=== PATIENT | male | born 1970 | race Caucasian/White ===

== ENCOUNTER 2023-01-07 15:27 | Emergency (ER) | payer OTHER, SELFPAY ==
[2023-01-07 15:37] VITALS: BP 188/100; PULSE 78; RESP 20; TEMP 36.6; O2SAT 97; BMI 36.9
--- NOTE | 2023-01-07 17:56 | XR_ITS ---
The [address] [address] Patient Name: KELSEY RAMOS MRN: [id number] date: 1970 Sex: M Assigned Patient Location: ER Current Patient Location: ER Accession/Order Number: [id number] Exam Date: 01/07/2023 17:50 Report Date: 01/07/2023 20:48 At the request of: PACHECO UREÑA Procedure: XR elbow LT 2V PROCEDURE: XR elbow LT 2V HISTORY: injury c/o pain to area. COMPARISON: XR elbow left 03/23/2022 FINDINGS: BONES:There is suggestion of fracture of the anterior aspect of the radial head, but no corresponding finding on additional images. SOFT TISSUES:No visible soft tissue swelling. EFFUSION:Small joint effusion. OTHER: Negative. XR/XR elbow LT 2V IMPRESSION: 1. Concern for fracture of radial head of left elbow as detailed above. Consider CT imaging of the elbow if this fits with clinical presentation. 2. Small joint effusion. Preliminary findings were provided to the emergency department at time of imaging. Electronically authenticated by: NICOLA GRUBBS Date: 01/07/2023 20:48
--- NOTE | 2023-01-07 17:56 | CT_ITS ---
The [address] [address] Patient Name: KELSEY RAMOS MRN: [id number] date: 1970 Sex: M Assigned Patient Location: ER Current Patient Location: ER Accession/Order Number: [id number] Exam Date: 01/07/2023 17:48 Report Date: 01/07/2023 20:50 At the request of: PACHECO UREÑA Procedure: CT facial bones wo con EXAMINATION: CT facial bones wo con HISTORY: fell hit face with bleeding from right nares COMPARISON: No relevant comparison available. TECHNIQUE: Axial, Coronal, and Sagittal CT images created without IV contrast. Dose reduction techniques were achieved by using automated exposure control and/or adjustment of mA and/or kV according to patient size and/or use of iterative reconstruction technique. FINDINGS: FACIAL BONES: No bony lesion or fracture. SINUSES: No visible mass, significant fluid or mucosal thickening. NASAL FOSSA: No mass, fracture, or significant septal deviation. SKULL BASE: No mass or bone destruction. ORBITS: No visible mass, hematoma, edema or fracture. OTHER: Negative. CT/CT facial bones wo con IMPRESSION: 1. No acute bone abnormality. 2. Clear sinuses. Preliminary findings were provided to the emergency department at time of imaging. Electronically authenticated by: NICOLA GRUBBS Date: 01/07/2023 20:50
--- NOTE | 2023-01-07 17:56 | XR_ITS ---
The [address] [address] Patient Name: KELSEY RAMOS MRN: [id number] date: 1970 Sex: M Assigned Patient Location: ER Current Patient Location: ER Accession/Order Number: [id number] Exam Date: 01/07/2023 17:50 Report Date: 01/07/2023 20:46 At the request of: PACHECO UREÑA Procedure: XR forearm RT 2V PROCEDURE: XR forearm RT 2V HISTORY: injury c/o pain to the area COMPARISON: None. FINDINGS: BONES:No fracture, acute abnormality, or significant arthropathy. SOFT TISSUES:No visible soft tissue swelling. EFFUSION:None visible. OTHER: Negative. XR/XR forearm RT 2V IMPRESSION: 1. No acute bone abnormality. Electronically authenticated by: NICOLA GRUBBS Date: 01/07/2023 20:46
[2023-01-07 20:06] VITALS: BP 180/118; PULSE 71; RESP 16; O2SAT 97
--- NOTE | 2023-01-07 21:08 | ED.FALL1 ---
HPI - Fall General Chief Complaint: Fall Stated Complaint: FALL AT WORK Time Seen by Provider: 01/07/23 18:34 Source: patient Mode of arrival: walk-in Limitations: no limitations History of Present Illness HPI Narrative: patient fell at work. States he struck his right forearm and elbow on scrap on the floor and struck his left elbow on a bucket of his machine. He has a couple of areas of mild contusion of the RUE but demonstrates FROM . Has minimal ROM left elbow due to pain. Denies injury other than his arms. Did not strike his head but did strike his nose and just above his mouth. Denies numbness or weakness of his extremities complaint: Reports fall Related Data Home Medications Medication Instructions Recorded Confirmed No Known Home Medications 01/07/23 01/07/23 Allergies Allergy/AdvReac Type Severity Reaction Status Date / Time amoxicillin Allergy Severe Rash Verified 01/07/23 15:36 Review of Systems ROS Status of ROS 10 or more systems reviewed and unremarkable except as noted in history and below [facility] Social History Smoking status: Light tobacco smoker Exam Constitutional Vital Signs, click to edit/add: Last Vital Signs Temp 98 F 01/07/23 15:37 Pulse 60 01/07/23 21:48 Resp 16 01/07/23 21:48 BP 158/96 H 01/07/23 21:48 Pulse Ox 98 01/07/23 21:48 O2 Del Method Room Air 01/07/23 21:48 Common normals: no apparent distress, average body habitus and oriented x3 HENMT Common normals: head/scalp atraumatic (no obvious trauma to his face but on close inspection has a small nasal cut) Eye Common normals: EOMs intact bilaterally and conjunctivae normal Respiratory Common normals: normal respiratory effort, no retractions, no use of accessory muscles and clear to auscultation bilaterally Cardio Common normals: regular rate, regular rhythm, S1 normal heart sound and S2 normal heart sound Extremity Other: minor focal contusion right elbow and forearm. point tenderness left elbow olecranon and radial head. patient resist ROM of the left elbow due to pain Neuro Common normals: oriented x3, CN's II-XII intact bilaterally, moves all extremities and no focal motor deficits Psych Appearance: grossly normal Course Vital Signs Vital signs: Vital Signs Temperature 98 F 01/07/23 15:37 Pulse Rate 78 01/07/23 15:37 Respiratory Rate 20 01/07/23 15:37 Blood Pressure 188/100 H 01/07/23 15:37 Pulse Oximetry 97 01/07/23 15:37 Oxygen Delivery Method Room Air 01/07/23 15:37 Temperature 98 F 01/07/23 15:37 Pulse Rate 60 01/07/23 21:48 Respiratory Rate 16 01/07/23 21:48 Blood Pressure 158/96 H 01/07/23 21:48 Pulse Oximetry 98 01/07/23 21:48 Oxygen Delivery Method Room Air 01/07/23 21:48 MDM - Fall MDM Narrative Medical decision making narrative: patient fell at work. sustained minor cut nasal columella. no deformity or swelling. No maxilla or facial swelling. 2 minor contusions RUE. focal tenderness left elbow. xray without obvious fracture but does demonstrate small joint effusion at radial head and concern for fracture at the radial head. Patient informed of the above. Placed in a splint and sling and discharged home to follow up with [facility]. patient also has history of HTN. Has been non compliant taking his medication. Repeat BP 150s/90. Patient discharged to follow up with his doctor Discharge Plan Discharge Chief Complaint: Fall Clinical Impression: Closed fracture of radial head, Hypertension, Contusion of forearm, right Patient Disposition: Home, Self-Care Prescriptions / Home Meds: No Action No Known Home Medications Instructions: Elbow Fracture (ED), Chronic Hypertension (ED) Additional Instructions: follow up with [facility] and with your family doctor Stand Alone Forms: Portal Instructions Referrals: Physician,Non-Staff, MD [Primary Care Provider] - 1 week Procedures ED Procedure Instructions Procedures Procedures: possible left elbow radial head fracture. Posterior elbow splint -fiber glass material- placed left elbow. Patient tolerated procedure well and N/V post procedure WNL
[2023-01-07 21:48] VITALS: BP 158/96; PULSE 60; RESP 16; O2SAT 98
[2023-01-07] MEDS: HYDROCODONE/ACETAMINOPHEN 5-325 MG TABLET 2 TAB PO (22:14)
== END 2023-01-07 22:11 | disposition home or self-care (01) ==
PROVIDERS: Emergency Provider Internal Medicine
DX: S52.121A Displaced fracture of head of right radius, initial encounter for closed fracture (principal); S50.11XA Contusion of right forearm, initial encounter; I10 Essential (primary) hypertension; W19.XXXA Unspecified fall, initial encounter
CPT/HCPCS: 29105; 70486; 73070; 73090; 99284

== ENCOUNTER 2023-01-21 09:07 | Outpatient (OUT) | payer OTHER, SELFPAY ==
--- NOTE | 2023-01-21 09:21 | CT_ITS ---
The [address] [address] Patient Name: KELSEY RAMOS MRN: [id number] date: 1970 Sex: M Assigned Patient Location: CT Current Patient Location: CT Accession/Order Number: [id number] Exam Date: 01/21/2023 09:25 Report Date: 01/21/2023 10:10 At the request of: RHEA SALINAS Procedure: CT forearm LT wo con EXAMINATION: CT forearm LT wo con HISTORY: Left Elbow Fracture S42.402A COMPARISON: No relevant comparison available. TECHNIQUE: Multi-planar CT images were created without and/or with IV contrast according to examination type. Dose reduction techniques were achieved by using automated exposure control and/or adjustment of mA and/or kV according to patient size and/or use of iterative reconstruction technique. FINDINGS: BONES: 2 separate nondisplaced fracture lines through the radial head and nondisplaced small cortical fragment from anterior margin. SOFT TISSUES: Mild subcutaneous edema posterior to the elbow. No hematoma. EFFUSION: No joint effusion. OTHER: Negative. CT/CT forearm LT wo con IMPRESSION: 1. Subacute, nondisplaced comminuted fracture of the left radial head. Electronically authenticated by: NICOLA GRUBBS Date: 01/21/2023 10:10
== END 2023-01-21 09:08 | disposition home or self-care (01) ==
LOC: CT 09:08
PROVIDERS: Visit Provider Nurse Practitioner Family
DX: S52.122A Displaced fracture of head of left radius, initial encounter for closed fracture (principal)
CPT/HCPCS: 73200

== ENCOUNTER 2023-04-02 06:43 | Emergency (ER) | payer OTHER, SELFPAY ==
[2023-04-02 06:47] VITALS: BP 212/120; PULSE 86; RESP 18; TEMP 36.7; O2SAT 96; BMI 36.2
[2023-04-02 07:07] VITALS: BP 184/100
--- NOTE | 2023-04-02 07:08 | ED.DENTAL1 ---
HPI - Dental/Oral General Chief complaint: Dental/Oral Stated complaint: dental pain Time Seen by Provider: 04/02/23 06:55 Source: patient Mode of arrival: walk-in History of Present Illness HPI Narrative: patient has several areas of dental concern. He has several broken and carious teeth in the upper left side of the mouth and is now having pain along the molars in the lower left. He is concerned about possible infection. He does not have a local dentist. He previously saw a dentist in September but they didn't operate on me . No systemic complaints such as fever or vomiting. He was previously diagnosed with HTN and stopped taking his meds in 2019. he does not know what he took and does not want to restart his meds. Related Data Previous Rx's Medication Instructions Recorded clindamycin HCl 150 mg capsule 450 mg PO TID 7 days #63 caps 04/02/23 nabumetone 750 mg tablet 750 mg PO BID PRN pain #14 tabs 04/02/23 Allergies Allergy/AdvReac Type Severity Reaction Status Date / Time amoxicillin Allergy Severe Rash Verified 04/02/23 06:53 PFSH PFS Social History Smoking status: Current every day smoker Exam Narrative Exam Narrative: General: The patient is comfortable, alert and oriented x3, well appearing, non toxic in no apparent distress. afebrile Head: Atraumatic and normocephalic. Eyes: Normal conjunctiva ENT: The oropharynx is normal. No pharyngeal erythema, uvular edema, tonsillar exudates, asymmetry or trismus. Uvula is midline. Mouth is normal to inspection with the exception of a pain on percussion of the tooth #18 & 19. He ism missing large portions of teeth # 10-13 and has evidence of dental caries in those areas. He has some gingivitis in the upper left mouth. There is no evidence of facial asymmetry or abscess formation. Floor of the mouth is soft. No tenderness in the submental or submandibular space. No tongue elevation or deviation. The patient has no evidence of periapical abscess or other acute pathology. Airway is patent. Neck: The neck demonstrates normal range of motion. No meningeals signs are present. No stridor. No masses or lymphandenopathy noted. Respiratory: No acute distress, lungs are clear to auscultation, no wheezing, rhonchi, or rales noted. No stridor or retractions are noted. Cardiovascular: Regular rate and rhythm Skin: The skin exam shows no evidence of rashes Neuro: Alert and oriented x4, normal speech Lymphatic: No cervical lymphadenopathy Constitutional Vital Signs, click to edit/add: Last Vital Signs Temp 98.0 F 04/02/23 06:47 Pulse 86 04/02/23 06:47 Resp 18 04/02/23 06:47 BP 184/100 H 04/02/23 07:07 Pulse Ox 96 04/02/23 06:47 O2 Del Method Room Air 04/02/23 06:47 Course Vital Signs Vital signs: Vital Signs Temperature 98.0 F 04/02/23 06:47 Pulse Rate 86 04/02/23 06:47 Respiratory Rate 18 04/02/23 06:47 Blood Pressure 212/120 H 04/02/23 06:47 Pulse Oximetry 96 04/02/23 06:47 Oxygen Delivery Method Room Air 04/02/23 06:47 Temperature 98.0 F 04/02/23 06:47 Pulse Rate 86 04/02/23 06:47 Respiratory Rate 18 04/02/23 06:47 Blood Pressure 184/100 H 04/02/23 07:07 Pulse Oximetry 96 04/02/23 06:47 Oxygen Delivery Method Room Air 04/02/23 06:47 MDM - Dental/Oral MDM Narrative Medical decision making narrative: the patient has gingival changes, dental caries and several fractured teeth. He was given topical dental anesthetic paste in our ED and prescribed clindamycin and relafen. He was also given a dentist referral list for local options. We gafve him a list of local PCPs and encouraged him to schedule follow up for full physical and possible restart of his HTN med Discharge Plan Discharge Chief Complaint: Dental/Oral Clinical Impression: Dental caries, Gingivitis, HTN (hypertension) Patient Disposition: Home, Self-Care Time of Disposition Decision: 07:12 Prescriptions / Home Meds: New clindamycin HCl 150 mg capsule 450 mg PO TID 7 Days Qty: 63 0RF nabumetone 750 mg tablet 750 mg PO BID PRN (Reason: pain) Qty: 14 0RF Instructions: Gingivitis (ED), Toothache (ED) Stand Alone Forms: Portal Instructions Referrals: Physician,Non-Staff, MD [Primary Care Provider] - 1 week
--- NOTE | 2023-04-02 07:09 | PC.NURSE ---
Pt had metal kevin a couple of months ago come back and hit him in the tooth, the tooth is broken. followed up with dentist but the canccelled twice d/t computer being down. Has yet to get into dentist.
[2023-04-02] MEDS: BENZOCAINE 30 ML, lidocaine HCL 15 ML MM (07:23)
== END 2023-04-02 07:22 | disposition home or self-care (01) ==
PROVIDERS: Emergency Provider Emergency Medicine
DX: K02.9 Dental caries, unspecified (principal); K05.10 Chronic gingivitis, plaque induced; I10 Essential (primary) hypertension; F17.210 Nicotine dependence, cigarettes, uncomplicated
CPT/HCPCS: 99283